=== PATIENT | female | born 1945 | race Caucasian/White ===

== ENCOUNTER 2016-12-14 11:42 | Outpatient (CLI) | payer MEDICARE, OTHER ==
[2014-11-05 12:33] VITALS: BP 148/45
[2016-12-14 12:36] LABS: eGFR (African) > 60; eGFR (Non-African) > 60
== END 2016-12-14 11:45 ==
LOC: LAB 11:42
PROVIDERS: ATTEND Clinical Nurse Specialist Medical-Surgical
DX: M81.0 Age-related osteoporosis without current pathological fracture (principal); E55.9 Vitamin D deficiency, unspecified; E83.52 Hypercalcemia
CPT/HCPCS: 36415; 80053; 82306

== ENCOUNTER 2017-06-21 12:14 | Outpatient (CLI) | payer MEDICARE, OTHER ==
[2014-11-05 12:33] VITALS: BP 148/45
== END 2017-06-21 12:15 ==
LOC: LAB 12:14
PROVIDERS: ATTEND Clinical Nurse Specialist Medical-Surgical
DX: M81.0 Age-related osteoporosis without current pathological fracture (principal); R26.9 Unspecified abnormalities of gait and mobility; E55.9 Vitamin D deficiency, unspecified; Z82.62 Family history of osteoporosis
CPT/HCPCS: 36415; 82306; 82310

== ENCOUNTER 2017-10-08 15:25 | Emergency (ER) | payer MEDICARE, OTHER ==
--- NOTE | 2017-10-08 15:43 | ED Physician Documentation ---
General Adult - HISTORIAN Historian: patient - HPI Stated Complaint: cough Chief Complaint: Cough/ Upper Respiratory Onset: days ago (2) Timing: still present, worse Severity: moderate Further Comments: yes (she states that on she started to have a cough, she does note a history of COPD and she has had cough that she cannot cough up the phglem she feels she needs to. She did not measure a fever but she has had chills and she states the fatigue is extreme. She has headache and cough. She feels short on air. She has tried OTC meds and she does not feel she is getting any relief.) - ROS CONST: sweating. denies: fever EYES/ENT: nasal drainage, nasal congestion CVS/RESP: shortness of breath, cough GI/: diarrhea. denies: vomiting, nausea MS/SKIN/LYMPH: denies: rash NEURO/PSYCH: headache. denies: dizziness - PAST HX Past History: COPD Surgeries/Procedures: other Immunizations: referred to PCP Allergies/Adverse Reactions: Allergies Allergy/AdvReac Type Severity Reaction Status Date / Time gabapentin Allergy Mental Verified 10/08/17 15:45 Status change hydrocodone Allergy Verified 10/08/17 15:45 Home Medications: Ambulatory Orders Medication Instructions Recorded Aspirin [Adult Low Dose Aspirin EC] 81 mg PO QDAY 10/08/17 Calcium Citrate/Vitamin D3 1 each PO 10/08/17 [Calcium Citrate +Vit D3 Tablet] Ergocalciferol (Vitamin D2) 2,000 unit PO QDAY 10/08/17 [Vitamin D-2] Glucosa Balderrama 2Kcl/Chondroitin Balderrama 1 each PO BID 10/08/17 [Glucosamine-Chondroitin Cap] Methylprednisolone [Medrol] 4 mg PO D #1 tab.ds.pk 10/08/17 - SOCIAL HX Smoking History: quit less than 1 year Alcohol Use: none Drug Use: none - FAMILY HX Family History: No - VITAL SIGNS Vital Signs: Vital Signs Temp Pulse Resp BP Pulse Ox 148/45 11/05/14 12:33 - REVIEWED ASSESSMENTS Nursing Assessment Reviewed: Yes Vitals Reviewed: Yes ED Results Lab/Radiology - Radiology Radiology Impressions: Examination: PA and lateral chest. History: Evaluate lung green. Comparison exam: None provided Findings: PA lateral chest demonstrate a normal cardiac and mediastinal silhouette. Emphysematous changes with parenchymal scarring. Scattered granuloma. No focal infiltrate. No blunting of the costophrenic margins. Osseous structures are appropriate for age. Impression: Chronic interstitial changes. No acute appearing pulmonary process. Electronically signed on Oct 08, 2017 4:36:50 PM HARNESS CUTTER by: Boy Lozano General Adult Physical Exam - PHYSICAL EXAM GENERAL APPEARANCE: mild distress EENT: no signs of dehydration RESPIRATORY: wheezes, other (decreased air movement on RLQ she is mildy in resp distress ) CVS: reg rate & rhythm, heart sounds normal, equal pulses, no murmur ABDOMEN: soft, no organomegaly, normal bowel sounds BACK: normal inspection SKIN: warm/dry, normal color EXTREMITIES: non-tender, normal range of motion NEURO: oriented X3, CN's nml as tested, motor nml, sensation nml Discharge Clincal Impression: Bronchitis, Renal function impairment Prescriptions: Methylprednisolone [Medrol] 4 mg PO D #1 tab.ds.pk Referrals: Urban Molina MD [Primary Care Provider] - 2 Days Comments: Call Dr Molina office and repeat lab Wednesday or Wednesday She has cough syrup at home Medrol dose pack Return to ER for any concerns or change in symptoms Condition: Stable Disposition: 01 HOME, SELF-CARE Decision to Admit: NO Date of Decison to Admit: 10/08/17 Decision Time: 17:43
[2017-10-08] MEDS ORDERED: IPRATROPIUM/ALBUTEROL SULFATE 3 ML AMPUL.NEB NEB ONE (15:47)
[2017-10-08 16:33] LABS: BASOPHILS % 0.6 (0.0-1.5); EOSINOPHILS % 1.7 % (0.0-6.8); MEAN CORPUSCULAR HEMOGLOBIN 29.7 pg (28.0-34.0); MEAN CORPUSCULAR VOLUME 91.2 fl (80.0-100.0); MONOCYTES % 5.4 % (0.0-11.0); NEUTROPHILS # 5.7 # k/uL (1.4-7.7)
--- NOTE | 2017-10-08 16:37 | Diagnostic Imaging Report ---
CARLYN GUTIERREZ [facility] [address] [facility] [address] [place], [place]. 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 History: Evaluate lung green. Comparison exam: None provided Findings: PA lateral chest demonstrate a normal cardiac and mediastinal silhouette. Emphysematous changes with parenchymal scarring. Scattered granuloma. No focal infiltrate. No blunting of the costophrenic margins. Osseous structures are appropriate for age. Impression: Chronic interstitial changes. No acute appearing pulmonary process. Electronically signed on Oct 08, 2017 4:36:50 PM HEAD SUGAR REPROCESS OPERATOR by: Boy SAVAGE
[2017-10-08] MEDS ORDERED: 0.9 % SODIUM CHLORIDE 1,000 ML IV ONE ×2 (17:00→17:03)
[2017-10-08 18:10] VITALS: BP 142/51
== END 2017-10-08 18:08 | disposition home or self-care (01) ==
LOC: ED 15:25
DX: J40 Bronchitis, not specified as acute or chronic (principal); N28.9 Disorder of kidney and ureter, unspecified
CPT/HCPCS: 71020; 80053; 85025; J7030; 96360; 99283; S1016

== ENCOUNTER 2017-10-20 13:34 | Outpatient (CLI) | payer MEDICARE, OTHER ==
[2017-10-20 14:13] LABS: eGFR (African) 36; eGFR (Non-African) 29
== END 2017-10-20 13:35 ==
LOC: LAB 13:34
PROVIDERS: ATTEND Physician Assistant
DX: R79.89 Other specified abnormal findings of blood chemistry (principal)
CPT/HCPCS: 36415; 80053

== ENCOUNTER 2017-11-19 10:26 | Outpatient (CLI) | payer MEDICARE, OTHER ==
--- NOTE | 2017-11-30 10:08 | CONSULTATION REPORT ---
REFERRING PHYSICIAN: Dr. Urban Molina CONSULTING PHYSICIAN: Belle Cobb MD CHIEF COMPLAINT: "I am having some trouble breathing, and I am told also that I have emphysema." SIGNIFICANT PROBLEM LIST: 1. Chronic obstructive pulmonary disease (COPD)/emphysema. 2. Hyperlipidemia. 3. Gastroesophageal reflux disease (GERD). 4. Hypertension. 5. Mild renal insufficiency. 6. Neuropathy. 7. Osteoporosis. 8. Spinal stenosis. 9. Hiatal hernia. HISTORY OF PRESENT ILLNESS: This is a 72-year-old female who is an ex-smoker and has been told that she has emphysema. She quit tobaccos use in 2013 and for the last several years, she has been going to [facility] to get the lung cancer screening chest CT scans. She states that she does not have lung cancer but they have told her that she has emphysema. She went to the emergency department on October 08, 2017, and on October 20, 2017, complaining of cough and congestion. She was treated with Augmentin and a Medrol Dosepak. She also saw Dr. Molina on October 27, 2017, and given the diagnosis of bronchitis. Patient states she has been prescribed Advair but is not convinced that it is helping her. She is over her cough and sinus congestion. She denies chest pain. There is no PND. No pedal edema. No fevers, chills, or sweats. No cough at present. No history of any hemoptysis. She has never taken any prednisone for her lungs. She does have trouble with GERD and also complains of postnasal drip. She denies a past history of asthma, pneumonia, or DVTs. She used to smoke tobacco at least 1 pack per day for 30 years. She quit in 2003. REVIEW OF SYSTEMS: Please see HPI for pertinent review of systems, otherwise, please see [facility] patient intake record. MEDICATIONS: 1. Atorvastatin 10 mg daily. 2. Advair 250/50 one puff b.i.d. 3. Omeprazole 20 mg before meals. 4. Lisinopril daily. 5. Aspirin 81 mg daily. 6. Glucosamine chondroitin 1 tablet b.i.d. 7. Calcium citrate with vitamin D 1 tablet b.i.d. 8. Multivitamins 2 tablets daily. 9. Vitamin D gel caps 2000 international units daily. 10. Albuterol inhaler p.r.n. 11. Denosumab 60 mg every 6 months. ALLERGIES: 1. Gabapentin. 2. Hydrocodone. SOCIAL HISTORY: She is and lives with her . 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 Tobacco use as per HPI. FAMILY HISTORY: Family history of heart disease. PHYSICAL EXAMINATION: VITAL SIGNS: BP: 184/86, P: 73, R: 22, T: 96.9, oxygen saturation is 94% on room air. Height: 5 feet 3 inches. Weight: 160. BMI is 28.3. GENERAL: This is a well-nourished, well-developed female in no acute distress speaking in full sentences. HEENT: Pupils are equal and reactive to light. Oropharynx is clear. No thrush. No erythema. NECK: Supple. No adenopathy. No JVD. Trachea midline. LUNGS: Good bilateral air excursion. Clear to auscultation. No wheezes. No crackles. No tactile fremitus. CARDIAC: Rate and rhythm are regular. S1, S2 without S3 or S4. No murmur, rubs, or gallops. ABDOMEN: Obese. Positive bowel sounds. Soft and nontender. No organomegaly. EXTREMITIES: No cyanosis, clubbing, or edema. NEUROLOGIC: Alert and oriented x3. Grossly nonfocal exam. Gait normal for age. LYMPH NODES: No lymphadenopathy. IMAGING: All imaging independently reviewed by me personally. Chest x-ray on October 08, 2017: Increased markings at bases. Peribronchial cuffing. Flat diaphragm. Consistent with COPD. LABORATORY: 1. CBC on October 08, 2017: Hemoglobin 13, hematocrit 40, WBC 6.9, platelets 218,000. 2. Chemistry on October 20, 2017: Sodium 145, potassium 4.6, chloride 104, bicarbonate 30, BUN 26, creatinine 1.8, (previous creatinine was 2.0 from October 08, 2017), glucose 115. ASSESSMENT AND PLAN: PROBLEM #1: Chronic obstructive pulmonary disease (COPD). This assessment is based on the patient's history of extensive smoking and the fact that the staff at [facility] has told her she has emphysema that is visible on her chest CT scans. I have discussed with the patient the different classes of medications, including long-acting anticholinergics, and I have also discussed with her the benefits of Pulmonary rehab. PLAN: 1. Obtain chest CT scans on [facility] from [facility] to review the extent of the emphysema. 2. Pulmonary function test (PFT) with arterial blood gas (ABG) at [facility]. 3. Re-discuss referral to Pulmonary rehab on next visit. 4. Re-discuss addition of a long-acting anticholinergic inhaler on next visit. PROBLEM #2: Preventative Pulmonary Medicine. The patient has had her flu shot for 2016. PLAN: Return to clinic after completion of PFT. cc: Dr. Urban SAVAGE
== END 2017-11-19 10:27 ==
LOC: PULMONARY 10:26
PROVIDERS: ATTEND Internal Medicine Pulmonary Disease
DX: J44.9 Chronic obstructive pulmonary disease, unspecified (principal); J43.9 Emphysema, unspecified; K21.0 Gastro-esophageal reflux disease with esophagitis; I10 Essential (primary) hypertension; N17.9 Acute kidney failure, unspecified; G60.9 Hereditary and idiopathic neuropathy, unspecified; M48.00 Spinal stenosis, site unspecified; K44.9 Diaphragmatic hernia without obstruction or gangrene
CPT/HCPCS: 99214; G0463

== ENCOUNTER 2017-11-23 10:48 | Outpatient (CLI) | payer MEDICARE, OTHER ==
[2017-11-23] MEDS ORDERED: ALBUTEROL SULFATE 2.5 MG/3 ML AMPUL.NEB NEB ONE (11:08)
== END 2017-11-23 10:50 ==
LOC: RT 10:48
PROVIDERS: ATTEND Internal Medicine Pulmonary Disease
DX: J44.9 Chronic obstructive pulmonary disease, unspecified (principal)
CPT/HCPCS: 94060

== ENCOUNTER 2017-12-17 12:47 | Outpatient (CLI) | payer MEDICARE, OTHER ==
--- NOTE | 2017-12-28 10:10 | OP Clinic Progress Note ---
PRIMARY CARE PROVIDER: Dr. Urban Molina CHIEF COMPLAINT: Patient returns for follow up to review her PFTs and chest CT scan results. Patient states that she feels slightly better. SIGNIFICANT PROBLEM LIST: 1. Severe chronic obstructive pulmonary disease (COPD), GOLD Class 3. 2. Significant emphysema diagnosed by chest CT scan. 3. Hyperlipidemia. 4. Gastroesophageal reflux disease (GERD). 5. Hypertension. 6. Mild renal insufficiency. 7. Neuropathy. 8. Osteoporosis. 9. Spinal stenosis. 10. Hiatal hernia. HISTORY OF PRESENT ILLNESS: Patient states that her breathing is much better. She thought that her hobby of cutting and working with gourds was making her short of breath, so she has stopped cutting the gourds and indeed, her breathing is much improved. On the last visit, I also encouraged her to walk and consider pulmonary rehab. She states that she has been coming to [facility] and doing rehab in their facility and that it has definitely helped her. She continues to use her Advair as instructed along with p.r.n. albuterol. She denies shortness of breath, chest pain, PND and edema. ALLERGIES: 1. Gabapentin. 2. Hydrocodone. MEDICATIONS: 1. Atorvastatin 10 mg daily. 2. Advair 250/50 1 puff in the a.m. and p.m. 3. Omeprazole 20 mg b.i.d. 4. Lisinopril 20 mg daily. 5. Aspirin 81 mg daily. 6. Glucosamine chondroitin 1 tablet b.i.d. 7. Calcium citrate 1 tablet b.i.d. 8. Multivitamin 2 tablets daily. 9. Vitamin D 2000 international units daily. 10. Albuterol inhaler p.r.n. 11. Denosumab 60 mg every 6 months. PHYSICAL EXAMINATION: VITAL SIGNS: BP: 129/102, P: 87, R: 20, T: 97.3, oxygen saturation is 94% on room air. BMI is 28.3. GENERAL: This is a well-developed, well-nourished female in no acute distress speaking in full sentences. HEENT: Pupils are equal and reactive to light. Oropharynx is clear. No thrush. No erythema. NECK: Supple. No adenopathy. LUNGS: Decreased breath sounds bilaterally. No wheezes. No crackles. No increased tactile fremitus. CARDIAC: Rate and rhythm are regular. No murmur, rubs, or gallops. ABDOMEN: Soft and nontender. EXTREMITIES: No cyanosis, clubbing, or edema. NEUROLOGIC: Alert and oriented x3. Gait normal for age. Grossly nonfocal. IMAGING: Imaging was independently reviewed by me personally. 1. PFT on November 23, 2017: FVC was 1.46 liters, 52% of predicted; FEV1 was 0.66 liters, 31% of predicted; FEV1/FVC was 0.45. Interpretation: Severe COPD, GOLD Class 3. 2. ABG was unable to be done due to machine malfunction. 3. [facility]. Severe emphysema. ASSESSMENT AND PLAN: PROBLEM #1: Severe chronic obstructive pulmonary disease (COPD), GOLD Class 3. Patient states that currently she is feeling better since she is no longer cutting her gourds and is also enjoying participating in the rehabilitation program at [facility]. (Please note this is not a pulmonary rehabilitation program). PLAN: 1. Continue the use of Advair. 2. Continue albuterol p.r.n. 3. I, again, have instructed the patient that we could at some point try a long-acting anti-cholinergic inhaler. 4. I have also instructed the patient if she feels that she would like to do a pulmonary rehabilitation program in [place], she would qualify for that based on her PFTs and her chest CT. 5. Return to clinic in April or May. cc: Dr. Urban SAVAGE
== END 2017-12-17 13:00 ==
LOC: PULMONARY 12:47
PROVIDERS: ATTEND Internal Medicine Pulmonary Disease
DX: J44.9 Chronic obstructive pulmonary disease, unspecified (principal); J43.9 Emphysema, unspecified; E78.5 Hyperlipidemia, unspecified; K21.0 Gastro-esophageal reflux disease with esophagitis; I10 Essential (primary) hypertension; N28.9 Disorder of kidney and ureter, unspecified; G62.9 Polyneuropathy, unspecified; M81.0 Age-related osteoporosis without current pathological fracture; M48.00 Spinal stenosis, site unspecified; K46.9 Unspecified abdominal hernia without obstruction or gangrene
CPT/HCPCS: 99214; G0463

== ENCOUNTER 2017-12-24 11:29 | Outpatient (CLI) | payer MEDICARE, OTHER | END 2017-12-24 13:32 | LOC: LAB 11:29 | PROVIDERS: ATTEND Clinical Nurse Specialist Medical-Surgical | DX: M81.0 Age-related osteoporosis without current pathological fracture (principal); Z82.62 Family history of osteoporosis; R26.9 Unspecified abnormalities of gait and mobility; E55.9 Vitamin D deficiency, unspecified | CPT/HCPCS: 36415; 82306; 82310 ==

== ENCOUNTER 2018-05-20 13:31 | Outpatient (CLI) | payer MEDICARE, OTHER ==
--- NOTE | 2018-05-23 13:54 | OP Clinic Progress Note ---
PRIMARY CARE PROVIDER: Dr. Urban Molina CHIEF COMPLAINT: "My breathing is reasonable." SIGNIFICANT PROBLEM LIST: 1. Severe COPD, GOLD Class 3. 2. Significant emphysema diagnosed via chest CT scan. 3. Hyperlipidemia. 4. GERD. 5. Hypertension. 6. Mild renal insufficiency. 7. Neuropathy. 8. Osteoporosis. 9. Spinal stenosis. 10. Hiatal hernia. HISTORY OF PRESENT ILLNESS: This is a 72-year-old female who returns to the Pulmonary Clinic for follow up. Overall, she states that she is doing okay. She is able to get up early prior to the excessive heat and humidity and go outside and water her plants and take care of her garden. She is walking. She states that she will start going back to the rehabilitation program here at [facility]. She brought her inhaler that she buys from a [employer] It is Seretide which is comparable to Advair containing fluticasone and salmeterol. Patient states that she does not get short of breath at rest but she does get short of breath with exertion and she uses her rescue inhaler but comments that if she just sits down, then her shortness of breath resolves. ALLERGIES: 1. Gabapentin. 2. Hydrocodone. MEDICATIONS: 1. Atorvastatin 10 mg daily. 2. Advair or Seretide 250/50 one inhalation twice a day. 3. Omeprazole 20 mg b.i.d. 4. Lisinopril 20 mg daily. 5. Aspirin 81 mg daily. 6. Glucosamine chondroitin 1 tablet b.i.d. 7. Calcium citrate 1 tablet b.i.d. 8. Multivitamins 2 tablets daily. 9. Vitamin D 2000 international units daily. 10. Albuterol MDI p.r.n. shortness of breath. 11. Prolia 60 mg subcutaneous every 6 months. PHYSICAL EXAMINATION: GENERAL: This is a well-developed, well-nourished overweight female in no acute distress speaking in full sentences. VITAL SIGNS: BP: 138/73, P: 75, R: 20, T: 96.5, room air oxygen saturation was 92%. HEENT: Pupils are equal and reactive to light. Oropharynx is clear. No thrush. No erythema. NECK: Supple. No adenopathy. LUNGS: Decreased air movement bilaterally. No wheezes, crackles, or rales. CARDIAC: Rate and rhythm are regular. No murmur, rubs, or gallops. ABDOMEN: Obese. Nontender. Soft. EXTREMITIES: No cyanosis, clubbing, or edema. NEUROLOGIC: Alert and oriented x3. Grossly nonfocal exam. IMAGING: All imaging independently reviewed by me personally. 1. Chest x-ray on October 08, 2017. Unable to view because of the radiology program. 2. Six-minute walk test. Baseline on room air was 96% saturation, heart rate at 98, after 5 minutes, oxygen saturation was 84%, pulse of 61, patient wanted to stop. She walked at a moderate fast pace and spoke in short sentences. ASSESSMENT AND PLAN: PROBLEM #1: Severe chronic obstructive pulmonary disease, GOLD Class 3. Overall, patient is stable from a COPD standpoint. She is using her medications appropriately and doing some walking exercises. PLAN: 1. Continue Advair. 2. Continue albuterol p.r.n. 3. Patient has another screening chest CT scheduled at [facility] and states that she will bring me the CT scan on a CD. 4. Patient may benefit from an anticholinergic inhaler (at present, she does not want one). PROBLEM #2: Hypoxemia. 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 We discussed the results of her 6-minute walk test and I definitely recommended oxygen with exertion. I also explained that an overnight nocturnal oxygen saturation study should also be done. At present, patient is not interested in oxygen but said she will think about it. PLAN: 1. Discuss the utility of oxygen on the next visit. 2. Patient would benefit from a nocturnal oxygen saturation study. 3. Patient to return to clinic in 6 to 8 weeks. cc: Dr. Urban SAVAGE
== END 2018-05-20 13:32 ==
LOC: PULMONARY 13:31
PROVIDERS: ATTEND Internal Medicine Pulmonary Disease
DX: J44.9 Chronic obstructive pulmonary disease, unspecified (principal); R09.02 Hypoxemia
CPT/HCPCS: 99214; G0463

== ENCOUNTER 2018-06-29 14:21 | Outpatient (CLI) | payer MEDICARE, OTHER | END 2018-06-29 14:22 | LOC: LAB 14:21 | PROVIDERS: ATTEND Clinical Nurse Specialist Medical-Surgical | DX: M81.0 Age-related osteoporosis without current pathological fracture (principal); Z82.62 Family history of osteoporosis; E55.9 Vitamin D deficiency, unspecified; R26.9 Unspecified abnormalities of gait and mobility | CPT/HCPCS: 36415; 82306; 82310 ==

== ENCOUNTER 2018-12-30 12:49 | Outpatient (CLI) | payer MEDICARE, OTHER | END 2018-12-30 12:55 | LOC: LAB 12:49 | PROVIDERS: ATTEND Clinical Nurse Specialist Medical-Surgical | DX: M81.0 Age-related osteoporosis without current pathological fracture (principal); E55.9 Vitamin D deficiency, unspecified; R26.9 Unspecified abnormalities of gait and mobility; Z82.62 Family history of osteoporosis | CPT/HCPCS: 36415; 82306; 82310 ==

== ENCOUNTER 2019-03-21 14:05 | Emergency (ER) | payer MEDICARE, OTHER ==
[2019-03-21] MEDS ORDERED: hydrALAZINE HCL 20 MG/1 ML ONE (15:35)
[2019-03-21] MEDS ORDERED: cloNIDine HCL 0.1 MG TABLET PO ONE (15:35)
[2019-04-02 18:47] LABS: eGFR (Non-African) 41
[2019-04-02 18:48] LABS: BASOPHILS % 0.6 % (0.0-1.5); NEUTROPHILS # 8.2 # k/uL (1.4-7.7)
== END 2019-03-21 16:51 ==
LOC: ED 14:05
DX: I10 Essential (primary) hypertension (principal)
CPT/HCPCS: 80053; 85025; J0360; S1016

== ENCOUNTER 2019-07-05 12:08 | Outpatient (CLI) | payer MEDICARE, OTHER | END 2019-07-05 12:10 | LOC: LAB 12:08 | PROVIDERS: ATTEND Clinical Nurse Specialist Medical-Surgical | DX: M81.0 Age-related osteoporosis without current pathological fracture (principal); E55.9 Vitamin D deficiency, unspecified; Z82.62 Family history of osteoporosis | CPT/HCPCS: 36415; 82306; 82310 ==

== ENCOUNTER 2019-08-14 15:19 | Outpatient (CLI) | payer MEDICARE, OTHER ==
--- NOTE | 2019-08-14 16:19 | Diagnostic Imaging Report ---
PATIENT MR#: [id number] PATIENT PATIENT NAME: KAYLEIGH WHITEHEAD DATE OF : 1945 REFERRING PHYSICIAN: Urban Molina EXAM DATE: 08/14/2019 ACCESSION NUMBER: [id number] EXAM DESCRIPTION: US U OR L EXT VEINS UNILAT Exam: Right lower extremity venous Doppler study. History: Calf pain. Doppler interrogation and color Doppler imaging of the venous structures in the right lower extremity are submitted. Spectral Doppler analysis demonstrates spontaneous and augmentable venous flow. Color Doppler imagin g reveals no thrombus formation. The venous structures are compressible. Impression: No sonographic evidence of deep vein thrombosis. Read by: Dr. Vasyl Saavedra Transcribed by: Transcribed Date: Electronically signed by: Dr. Vasyl Saavedra Date signed: 08/14/2019 4:19:13 PM
== END 2019-08-14 15:29 ==
LOC: RAD 15:19
PROVIDERS: ATTEND Family Medicine
DX: M79.661 Pain in right lower leg (principal)
CPT/HCPCS: 93971